=== PATIENT | female | born 1975 | race Two or more races ===

== ENCOUNTER 2018-09-27 08:58 | Emergency (ER) | payer SELFPAY ==
[~2018-09-27] VITALS: Ht 157.5 cm; Wt 90.7 kg
[2018-09-27 09:25] VITALS: BP 140/87
[2018-09-27] MEDS ORDERED: HYDROcodone-ACET 7.5/325MG TAB PO ONE (10:00)
== END 2018-09-27 10:07 | disposition home or self-care (01) ==
LOC: ER 09:02
DX: K02.9 Dental caries, unspecified (principal); T78.40XA Allergy, unspecified, initial encounter; F41.9 Anxiety disorder, unspecified; X58.XXXA Exposure to other specified factors, initial encounter